=== PATIENT | female | born 1950 | race Caucasian/White ===

== ENCOUNTER 2016-05-01 06:33 | Inpatient (IN) | payer BC ==
[~2016-05-01] VITALS: Ht 172.7 cm; Wt 86.0 kg
[2016-05-01] VITALS (10 sets, daily range): BP systolic 128–160; BP diastolic 65–98; PULSE 73–89; RESP 18–20; TEMP 97.4–97.9; O2SAT 96–98
[~2016-05-01 06:33] MED LIST: DILA100C
[2016-05-01] MEDS ORDERED: AMLO5TAB2 PO (06:51)
[2016-05-01] MEDS ORDERED: METO50TA PO (06:51)
--- NOTE | 2016-05-01 07:09 | PD ---
HPI Chief Complaint: Chest Pain Time Seen by Provider: 06:56 Travel History International Travel<30 days: No Contact w/Intl Traveler<30days: No Traveled to known affect area: No History of Present Illness HPI Patient is a 65-year-old female who presents to emergency room with complaints of chest pain. Patient reports that she woke up around 4 AM this morning, reports that she had a squeezing pain to her chest which was located to her substernal chest wall. Patient reports that her chest pain woke her from sleep , reports that she felt diaphoretic, short of breath, nauseous with her symptoms. Patient reports that she felt hot and diaphoretic so she laid down on the cold ground for relief of symptoms. Patient reports that she had complete resolutions after 30 minutes of her symptoms. Patient reports that after chest pain resolved, she began to have increased pain to her jaw. Reports that her jaw b/l began to hurt her. Patient denies history of [place] in the past. Patient reports only history of hypertension. Patient denies history of coronary disease, hyperlipidemia, diabetes. Patient does admit to smoking. Patient with no shortness of breath or chest pain at this time. No recent travels/trips. No family hx of early CAD/[place]. PFSH Past Medical History Diminished Hearing: No Hypertension: Yes Seizures: Yes ( non surgical lesion for 17 years) Tetanus Vaccination: > 5 Years Influenza Vaccination: No Menopausal: Yes Past Surgical History Cholecystectomy: Yes Hysterectomy: Yes (Full) Family History Family History: Negative Social History Alcohol Use: No Tobacco Use: Yes (1 ppd x 42 years) Substance Use: No Allergies-Medications (Allergen,Severity, Reaction): Coded Allergies: No Known Allergies (Verified , 08/09/14) Reported Meds & Prescriptions Reported Meds & Active Scripts Active Reported Amlodipine (Amlodipine Besylate) 5 Mg Tab 5 Mg PO DAILY Metoprolol Tartrate 50 Mg Tab 50 Mg PO DAILY Review of Systems General / Constitutional: No: Fever Eyes: No: Visual changes HENT: No: Headaches Cardiovascular: Positive: Chest Pain or Discomfort, Diaphoresis Respiratory: Positive: Cough, Shortness of Breath Gastrointestinal: Positive: Nausea, No: Vomiting, Abdominal Pain Genitourinary: No: Dysuria Musculoskeletal: No: Pain Skin: No Rash Neurologic: No: Weakness Psychiatric: No: Depression Endocrine: No: Polydipsia Hematologic/Lymphatic: No: Easy Bruising Physical Exam Narrative GENERAL: NAD, Nontoxic SKIN: Warm and dry. HEAD: Atraumatic. Normocephalic. EYES: No injection or drainage. ENT: No nasal bleeding or discharge. Mucous membranes pink and moist. NECK: Trachea midline. No JVD. CARDIOVASCULAR: Regular rate and rhythm. No murmur appreciated. RESPIRATORY: No accessory muscle use. Clear to auscultation. Breath sounds equal bilaterally. GASTROINTESTINAL: Abdomen soft, non-tender, nondistended. Hepatic and splenic margins not palpable. MUSCULOSKELETAL: No obvious deformities. No clubbing. No cyanosis. No edema. NEUROLOGICAL: Awake and alert. Motor grossly within normal limits. Normal speech. PSYCHIATRIC: Appropriate mood and affect; insight and judgment normal. Data Data Last Documented VS Vital Signs Date Time Temp Pulse Resp B/P Pulse Ox O2 Delivery O2 Flow Rate FiO2 05/01/16 06:42 20 Room Air 05/01/16 06:36 97.4 73 160/73 97 Orders B-Type Natriuretic Peptide (05/01/16 07:02) Ckmb (Isoenzyme) Profile (05/01/16 07:02) Complete Blood Count With Diff (05/01/16 07:02) Comprehensive Metabolic Panel (05/01/16 07:02) Prothrombin Time / Inr (Pt) (05/01/16 07:02) Act Partial Throm Time (Ptt) (05/01/16 07:02) Troponin I (05/01/16 07:02) Chest, Single Ap (05/01/16 07:02) Ecg Monitoring (05/01/16 07:02) Iv Access Insert/Monitor (05/01/16 07:02) Oximetry (05/01/16 07:02) Sodium Chloride 0.9% Flush (Ns Flush) (05/01/16 07:15) Sodium Chlorid 0.9% 500 Ml Inj (Ns 500 M (05/01/16 07:15) Electrocardiogram (05/01/16 06:57) Admit Order (Ed Use Only) (05/01/16 08:43) Labs Laboratory Tests Test 05/01/16 06:52 White Blood Count 12.0 TH/MM3 Red Blood Count 4.76 MIL/MM3 Hemoglobin 14.2 GM/DL Hematocrit 42.4 % Mean Corpuscular Volume 88.9 FL Mean Corpuscular Hemoglobin 29.8 PG Mean Corpuscular Hemoglobin 33.5 % Concent Red Cell Distribution Width 14.1 % Platelet Count 358 TH/MM3 Mean Platelet Volume 8.0 FL Neutrophils (%) (Auto) 70.2 % Lymphocytes (%) (Auto) 19.6 % Monocytes (%) (Auto) 6.9 % Eosinophils (%) (Auto) 2.5 % Basophils (%) (Auto) 0.8 % Neutrophils # (Auto) 8.4 TH/MM3 Lymphocytes # (Auto) 2.3 TH/MM3 Monocytes # (Auto) 0.8 TH/MM3 Eosinophils # (Auto) 0.3 TH/MM3 Basophils # (Auto) 0.1 TH/MM3 CBC Comment DIFF FINAL Differential Comment Prothrombin Time 10.5 SEC Prothromb Time International 1.0 RATIO Ratio Activated Partial 28.2 SEC Thromboplast Time Sodium Level 138 MEQ/L Potassium Level 4.0 MEQ/L Chloride Level 107 MEQ/L Carbon Dioxide Level 22.4 MEQ/L Anion Gap 9 MEQ/L Blood Urea Nitrogen 15 MG/DL Creatinine 0.81 MG/DL Estimat Glomerular Filtration 71 ML/MIN Rate Random Glucose 122 MG/DL Calcium Level 9.4 MG/DL Total Bilirubin 0.1 MG/DL Aspartate Amino Transf 12 U/L (AST/SGOT) Alanine Aminotransferase 23 U/L (ALT/SGPT) Alkaline Phosphatase 64 U/L Total Creatine Kinase 86 U/L Troponin I 0.05 NG/ML B-Type Natriuretic Peptide 20 PG/ML Total Protein 7.6 GM/DL Albumin 3.4 GM/DL MDM Medical Decision Making Medical Screen Exam Complete: Yes Emergency Medical Condition: Yes Interpretation(s) EKG at 656: Normal sinus rhythm at 67 beats minute, QT/QTc 403/418, T-wave inversions leads 3, aVF, nonspecific ST and T-wave changes, st seg depression V3 -V6 EKG at 956: NSR at 67bpm, qt/qtc: 400/416, no change when compare to original ekg Vital Signs Date Time Temp Pulse Resp B/P Pulse Ox O2 Delivery O2 Flow Rate FiO2 05/01/16 06:42 20 Room Air 05/01/16 06:36 97.4 73 20 160/73 97 Vital Signs Date Time Temp Pulse Resp B/P Pulse Ox O2 Delivery O2 Flow Rate FiO2 05/01/16 06:42 20 Room Air 05/01/16 06:36 97.4 73 20 160/73 97 Differential Diagnosis acs, arrhythmia, electrolyte abnormality, PE, pneumothorax Narrative Course Patient is a 65-year-old female who presents to emergency with complaints of chest pain. Patient reports that her chest pain woke her from sleep this morning around 4 AM, chest pain was associated with diaphoresis, nausea and a squeezing feeling to her substernal chest wall. Chest pain lasted for about 30 minutes, reports that this resolved, she began to have pain to her jaw bilaterally. Patient currently with no chest pain at this time. . Patient was placed on a manager cardiac upon presentation to the emergency room. Patient did take 2 baby aspirin prior to emergency room. Patient currently with no chest pain at this time. CBC, BMP, cardiac enzymes as well as x-ray chest ordered for further evaluation symptoms. Willl continue to monitor patient on manager cardiac. CBC & BMP Diagram 05/01/16 06:52 Laboratory Tests Test 05/01/16 06:52 White Blood Count 12.0 TH/MM3 (4.0-11.0) Red Blood Count 4.76 MIL/MM3 (4.00-5.30) Hemoglobin 14.2 GM/DL (11.6-15.3) Hematocrit 42.4 % (35.0-46.0) Mean Corpuscular Volume 88.9 FL (80.0-100.0) Mean Corpuscular Hemoglobin 29.8 PG (27.0-34.0) Mean Corpuscular Hemoglobin 33.5 % Concent (32.0-36.0) Red Cell Distribution Width 14.1 % (11.6-17.2) Platelet Count 358 TH/MM3 (150-450) Mean Platelet Volume 8.0 FL (7.0-11.0) Neutrophils (%) (Auto) 70.2 % (16.0-70.0) Lymphocytes (%) (Auto) 19.6 % (9.0-44.0) Monocytes (%) (Auto) 6.9 % (0.0-8.0) Eosinophils (%) (Auto) 2.5 % (0.0-4.0) Basophils (%) (Auto) 0.8 % (0.0-2.0) Neutrophils # (Auto) 8.4 TH/MM3 (1.8-7.7) Lymphocytes # (Auto) 2.3 TH/MM3 (1.0-4.8) Monocytes # (Auto) 0.8 TH/MM3 (0-0.9) Eosinophils # (Auto) 0.3 TH/MM3 (0-0.4) Basophils # (Auto) 0.1 TH/MM3 (0-0.2) CBC Comment DIFF FINAL Differential Comment Prothrombin Time 10.5 SEC (9.8-11.6) Prothromb Time International 1.0 RATIO Ratio Activated Partial 28.2 SEC Thromboplast Time (24.3-30.1) Sodium Level 138 MEQ/L (136-145) Potassium Level 4.0 MEQ/L (3.5-5.1) Chloride Level 107 MEQ/L (98-107) Carbon Dioxide Level 22.4 MEQ/L (21.0-32.0) Anion Gap 9 MEQ/L (5-15) Blood Urea Nitrogen 15 MG/DL (7-18) Creatinine 0.81 MG/DL (0.50-1.00) Estimat Glomerular Filtration 71 ML/MIN (>89) Rate Random Glucose 122 MG/DL (74-106) Calcium Level 9.4 MG/DL (8.5-10.1) Total Bilirubin 0.1 MG/DL (0.2-1.0) Aspartate Amino Transf 12 U/L (15-37) (AST/SGOT) Alanine Aminotransferase 23 U/L (10-53) (ALT/SGPT) Alkaline Phosphatase 64 U/L (45-117) Total Creatine Kinase 86 U/L (26-192) Troponin I 0.05 NG/ML (0.02-0.05) B-Type Natriuretic Peptide 20 PG/ML (0-100) Total Protein 7.6 GM/DL (6.4-8.2) Albumin 3.4 GM/DL (3.4-5.0) Last Impressions Chest X-Ray 05/01/16 0702 Signed Impressions: Service Date/Time: Sunday, May 01, 2016 07:19 - CONCLUSION: No acute intrathoracic disease. Alfredito Mcdaniel MD Patient reevaluated, patient reports that she is feeling better. Reviewed all labs and all studies with patient in detail. Patient does have nonspecific ST and T-wave changes on EKG. Plan to obs in chest pain unit - patient agreeable to care. pt with positive trop 0.11 (second trop) pt with ischemic ekg, will need to admit to medicine service, call made to pt's pcp to see if he would like patient admitted to his service primarily discussed need for heparin and heparin gtt on pt call made to pt's pcp dr ann - no call back after an hour of paging him. will continue to page him - no answer from Dr Ann after 1.5 hours of paging him - will admit to medicine discussed case with dr estrada who accepts pt to service, request that I consult cardiology for NSTEMI, call made to DR Wang who is regional branch manager today for general cardiology case reviewed with dr wang, will see patient in consult, request heparin gtt Critical Care Narrative Aggregate critical care time was 30 minutes. Time to perform other separately billable procedures was not included in the critical care time. My time did not include minutes spent treating any other patients simultaneously or on activities that did not directly contribute to the patient's treatment. The services I provided to this patient were to treat and/or prevent clinically significant deterioration that could result in: , decompensation, deterioration I provided critical care services requiring my management, as noted below: Chart data review, documentation time, medication orders and management, vital sign assessments/reviewing monitor data, ordering and reviewing lab tests, ordering and interpreting/reviewing x-rays and diagnostic studies, care of the patient and discussion of the patient with the admitting physicians. Diagnosis Primary Impression: NSTEMI (non-ST elevated myocardial infarction) Admitting Information Admitting Physician Requests: Kathleen Doan DO May 01, 2016 07:09
[2016-05-01] MEDS ORDERED: SODIUM CHLORID 0.9% 500 ML INJ 500 ML IV ONE (07:15)
[2016-05-01] MEDS ORDERED: SODIUM CHLORIDE 0.9% FLUSH 5 ML FLUSH IVF PRN (07:15)
--- NOTE | 2016-05-01 07:43 | RADRPT ---
EXAM DATE/TIME: 05/01/2016 07:19 [facility] COMPARISON: No previous studies available for comparison. INDICATIONS : Patient complains of chest pain. Patient also states they have mandible pain when chest pain was pres ent. MEDICAL HISTORY : None. SURGICAL HISTORY : None. ENCOUNTER: Initial ACUITY: 1 day PAIN SCORE: 8/10 LOCATION: chest FINDINGS: A single view of the chest demonstrates the lungs to be symmetrically aerated without evidence of mas s, infiltrate or effusion. The cardiomediastinal contours are unremarkable. Osseous structures are intact. CONCLUSION: No acute intrathoracic disease. Alfredito Mcdaniel MD on May 01, 2016 at 7:41 Board Certified Radiologist. This report was verified electronically.
[2016-05-01 07:55] LABS: AUTOMATED NEUTROPHIL # 8.4 TH/MM3 (1.8-7.7); BASOPHIL # 0.1 TH/MM3 (0-0.2); BASOPHIL % 0.8 % (0.0-2.0); EOSINOPHIL # 0.3 TH/MM3 (0-0.4); EOSINOPHIL % 2.5 % (0.0-4.0); HEMATOCRIT 42.4 % (35.0-46.0); HEMO FLAGS DIFF FINAL; LYMPH % 19.6 % (9.0-44.0); LYMPHOCYTE # 2.3 TH/MM3 (1.0-4.8); MEAN CELL VOLUME 88.9 FL (80.0-100.0); MEAN CORPUSCULAR HEMOGLOBIN 29.8 PG (27.0-34.0); MEAN CORPUSCULAR HGB CONC 33.5 % (32.0-36.0); MONO % 6.9 % (0.0-8.0); NEUT % 70.2 % (16.0-70.0); PLATELET COUNT 358 TH/MM3 (150-450); RED BLOOD COUNT 4.76 MIL/MM3 (4.00-5.30); RED CELL DISTRIBUTION WIDTH 14.1 % (11.6-17.2)
[2016-05-01 08:01] LABS: APTT (PATIENT) 28.2 SEC (24.3-30.1); PROTHROMBIN TIME - PATIENT 10.5 SEC (9.8-11.6)
[2016-05-01 08:11] LABS: ANION GAP 9 MEQ/L (5-15); AST (GOT) 12 U/L (15-37); BICARBONATE 22.4 MEQ/L (21.0-32.0); BLOOD UREA NITROGEN 15 MG/DL (7-18); CHLORIDE 107 MEQ/L (98-107); GLOMERULAR FILTRATION RATE 71 ML/MIN (>89); SODIUM (NA) 138 MEQ/L (136-145)
[2016-05-01 08:16] LABS: ALKALINE PHOSPHATASE 64 U/L (45-117); ALT (GPT) 23 U/L (10-53); TOTAL BILIRUBIN ADULT 0.1 MG/DL (0.2-1.0)
[2016-05-01 08:22] LABS: CREATINE KINASE 86 U/L (26-192)
[2016-05-01] MEDS ORDERED: HEPARIN-D5W INJ 250 ML IV SCH (11:00)
[2016-05-01] MEDS ORDERED: HEPARIN SODIUM - IV 10,000 UNITS/10 ML VIAL IV ONE (11:45)
--- NOTE | 2016-05-01 12:10 | EKG ---
Date Performed: 05/01/2016 Time Performed: 06:57:06 PTAGE: 65 years EKG: Sinus rhythm MARKED LEFT AXIS DEVIATION MODERATE INTRAVENTRICULAR CONDUCTION DELAY MODERATE VOLTAGE CRITERIA FOR LVH, CONSIDER NORMAL VARIANT NONSPECIFIC ST & T-WAVE ABNORMALITY ABNORMAL ECG NO PREVIOUS TRACING DOCTOR: Gerard Alvarenga Interpretating Date/Time 05/01/2016 12:07:01
--- NOTE | 2016-05-01 13:00 | HHI.HP ---
[facility] Service Family Medicine Primary Care Physician Vargas Thomas MD Admission Diagnosis Chest pain Diagnoses: International Travel<30 Days: No Contact w/Intl Traveler<30days: No Known Affected Area: No History of Present Illness Patient is a 65-year-old female with a PMH significant for HTN. Present here today due to chest pain. Chest pain started at 4 AM and woke her up from sleep. [place] like a "grabbing"sensation around her chest, midsternal that radiated up to bilateral jaw. No radiation down left arm. Endorsed weakness, diaphoresis, nausea without vomiting at that time. The symptoms lasted for one hour. Pain spontaneously resolved. During that time she did take 2 "big aspirins". Denies any SOB. No prior episode of chest pain or symptoms of dyspnea on exertion or orthopnea. No family history of cardiac disease. History is significant for smoking 1 PPD since 13 years old. (Shirley Cheung MD R2) Review of Systems Constitutional: COMPLAINS OF: Diaphoretic episodes, Fatigue, DENIES: Change in appetite Eyes: DENIES: Blurred vision Ears, nose, mouth, throat: DENIES: Vertigo, Throat pain Respiratory: DENIES: Cough, Shortness of breath Cardiovascular: COMPLAINS OF: Chest pain, DENIES: Palpitations, Syncope, Dyspnea on Exertion, Lower Extremity Edema, Orthopnea Gastrointestinal: COMPLAINS OF: Nausea, DENIES: Abdominal pain, Diarrhea, Vomiting Genitourinary: DENIES: Dysuria Musculoskeletal: COMPLAINS OF: Back pain Neurologic: DENIES: Headache (Shirley Cheung MD R2) Past Family Social History Past Medical History HTN Chronic Back issues Past Surgical History Hysterectomy Cholecystectomy Reported Medications Reported Meds & Active Scripts Active Reported Metoprolol Succinate ER 24 HR (Metoprolol Succinate) 50 Mg Tab 50 Mg PO DAILY Amlodipine (Amlodipine Besylate) 2.5 Mg Tab 2.5 Mg PO DAILY (Shirley Cheung MD R2) Allergies: Coded Allergies: No Known Allergies (Verified , 08/09/14) Family History Father: CHF, at 78 Mother: Pulmonary fibrosis, at 78 Social History Lives with Alcohol: denies Tobacco: 1ppd started at 13yrs Illicit: denies (Shirley Cheung MD R2) Physical Exam Vital Signs Vital Signs Date Time Temp Pulse Resp B/P Pulse Ox O2 Delivery O2 Flow Rate FiO2 05/01/16 11:18 89 18 145/65 96 05/01/16 06:42 20 Room Air 05/01/16 06:36 97.4 73 20 160/73 97 Physical Exam GENERAL: This is a well-nourished, well-developed patient, in no apparent distress. SKIN: No rashes, ecchymoses or lesions. Cool and dry. HEAD: Atraumatic. Normocephalic. No temporal or scalp tenderness. EYES: Pupils equal round and reactive. Extraocular motions intact. No scleral icterus. No injection or drainage. ENT: Nose without bleeding, purulent drainage. Throat without erythema, tonsillar hypertrophy or exudate. Uvula midline. Airway patent. NECK: No lymphadenopathy. CARDIOVASCULAR: Regular rate and rhythm without murmurs, gallops, or rubs. RESPIRATORY: Clear to auscultation. Breath sounds equal bilaterally. No wheezes , rales, or rhonchi. GASTROINTESTINAL: Abdomen soft, non-tender, nondistended. No hepato-splenomegaly , or palpable masses. No guarding. MUSCULOSKELETAL: Extremities without clubbing, cyanosis, or edema. No calf tenderness. NEUROLOGICAL: Awake and alert. Motor and sensory grossly within normal limits. Five out of 5 muscle strength in all muscle groups. Normal speech. Laboratory Laboratory Tests Test 05/01/16 05/01/16 06:52 10:00 White Blood Count 12.0 Red Blood Count 4.76 Hemoglobin 14.2 Hematocrit 42.4 Mean Corpuscular Volume 88.9 Mean Corpuscular Hemoglobin 29.8 Mean Corpuscular Hemoglobin 33.5 Concent Red Cell Distribution Width 14.1 Platelet Count 358 Mean Platelet Volume 8.0 Neutrophils (%) (Auto) 70.2 Lymphocytes (%) (Auto) 19.6 Monocytes (%) (Auto) 6.9 Eosinophils (%) (Auto) 2.5 Basophils (%) (Auto) 0.8 Neutrophils # (Auto) 8.4 Lymphocytes # (Auto) 2.3 Monocytes # (Auto) 0.8 Eosinophils # (Auto) 0.3 Basophils # (Auto) 0.1 CBC Comment DIFF FINAL Differential Comment Prothrombin Time 10.5 Prothromb Time International 1.0 Ratio Activated Partial 28.2 Thromboplast Time Sodium Level 138 Potassium Level 4.0 Chloride Level 107 Carbon Dioxide Level 22.4 Anion Gap 9 Blood Urea Nitrogen 15 Creatinine 0.81 Estimat Glomerular Filtration 71 Rate Random Glucose 122 Calcium Level 9.4 Total Bilirubin 0.1 Aspartate Amino Transf 12 (AST/SGOT) Alanine Aminotransferase 23 (ALT/SGPT) Alkaline Phosphatase 64 Total Creatine Kinase 86 Troponin I 0.05 0.11 B-Type Natriuretic Peptide 20 Total Protein 7.6 Albumin 3.4 (Shirley Cheung MD R2) Result Diagram: 05/01/16 0652 05/01/16651 Imaging Last Impressions Chest X-Ray 05/01/16701 Signed Impressions: Service Date/Time: Tuesday, May 01, 2016 07:19 - CONCLUSION: No acute intrathoracic disease. Alfredito Mcdaniel MD (Shirley Cheung MD R2) Assessment and Plan Assessment and Plan Patient is a 65-year-old female with a PMH significant for HTN. Admitted for an NTEMI Code Status Full Discussed Condition With Dr. Low and Dr. Zurita (Shirley Cheung MD R2) Attending Attestation THIS CASE WAS DISCUSSED WITH THE RESIDENT PHYSICIANS. I HAVE REVIEWED THE RECORD AND AGREE WITH THE ABOVE NOTE AND PLAN OF CARE WAS DISCUSSED. I HAVE AUTHORIZED THE ORDER FOR ADMISSION TO AN IN-PATIENT STATUS. (Alfredito Zurita MD) Problem List: (1) NSTEMI (non-ST elevated myocardial infarction) Status: Acute Plan: Presented with classic symptoms of chest pressure, diaphoresis, and nausea. EKG showed T wave inversion in inferior leads without ST changes. Trended troponins in the ED showed a pump from 0.05 to 0.11. Currently asymptomatic. -Leukocytosis but possibly due to stress response as patient is otherwise asymptomatic. Continue to follow -CXR unremarkable. -cardiac telemetry -Aspirin already taken at home prior to admission -Repeat EKG and troponin at 1600 -Lipid panel in AM Cardiology consulted: appreciated recommendations. * medical management * consider Cath on Tuesday if needed. Medications: * aspirin * atorvastatin 80mg daily * continued home metoprolol * switched home amlodipine 2.6mg to lisinopril 5mg daily (2) HTN (hypertension) Status: Acute Plan: Vasotec PRN (3) Nutrition, metabolism, and development symptoms Status: Acute Plan: Diet: Healthy healthy Fluids: none Electrolytes: unremarkable, continue to monitor DVT PPX: Heparin drip for NSTEMI GI PPX: not indicated (Shirley Cheung MD R2) Shirley Cheung MD R2 May 01, 2016 13:00 Alfredito Zurita MD May 01, 2016 20:56
[2016-05-01] MEDS ORDERED: METO50TA11 PO (13:06)
[2016-05-01] MEDS ORDERED: SODIUM CHLORIDE 0.9% FLUSH 5 ML FLUSH FLUSH PRN (13:45)
[2016-05-01] MEDS ORDERED: NALOXONE HCL 0.4 MG/ML AMP IV PRN (13:45)
[2016-05-01] MEDS ORDERED: SODIUM CHLORIDE 0.9% FLUSH 5 ML FLUSH IV PRN (13:45)
[2016-05-01] MEDS ORDERED: NITROGLYCERIN 2% OINT 1 GM PACKET TOP PRN (13:45)
[2016-05-01] MEDS ORDERED: AMLO2.5T PO (16:08)
--- NOTE | 2016-05-01 16:56 | MB ---
cc: MADDIE LEPE MD DATE OF CONSULTATION 05/01/16 HISTORY OF PRESENT ILLNESS Ms. Bray is a 65 year old white female with a history of hypertension. She woke at 4 o'clock this morning with substernal chest discomfort radiating in the jaw associated diaphoresis, nausea and generalized weakness. This lasted for about one hour. She took two aspirin. She has no previous history of coronary artery disease. She has history of smoking. PAST MEDICAL HISTORY 1. Hypertension 2. Chronic back pain 3. History of hysterectomy 4. Cholecystectomy No history of dyslipidemia, diabetes mellitus, coronary artery disease or cerebrovascular accident. MEDICATIONS 1. Metoprolol 2. Amlodipine ALLERGIES None. SOCIAL HISTORY The patient does not drink alcohol. She smokes one pack a day for many years. She is . FAMILY HISTORY Positive for heart disease in her father. REVIEW OF SYSTEMS Otherwise negative. PHYSICAL EXAMINATION VITAL SIGNS: Blood pressure 149/97, pulse 83 and regular. HEENT: Negative, 2+ carotid upstrokes, no bruits. LUNGS: Clear. HEART: Regular with no murmurs, rubs or gallops ABDOMEN: Soft, no bruits. EXTREMITIES: Without edema, 2+ distal pulses. NEUROLOGIC: Grossly nonfocal. CARDIOLOGY STUDIES Electrocardiogram was reviewed and showed normal sinus rhythm, left axis, left anterior fascicular block, left ventricular hypertrophy and nonspecific ST-T changes. LABORATORY DATA Hemoglobin 14.2, potassium 4.0, creatinine 0.81, troponin 0.05 and 0.11. BNP 20. AST 12, ALT 23. DIAGNOSES 1. Non ST elevation myocardial infarction 2. Hypertension 3. Smoking DISPOSITION Ms. Bray will continue her current medical program including therapy with IV heparin and aspirin. We will also continue beta karsten and start a statin. She will be scheduled for cardiac catheterization and coronary intervention if necessary on Tuesday. MD CRYSTAL English/ /4:34 PM /4:43 PM MTDJon
[2016-05-01] MEDS ORDERED: HEPARIN SODIUM - IV 10,000 UNITS/10 ML VIAL IV PRN ×2 (17:00)
[2016-05-01] MEDS ORDERED: ENALAPRILAT 1.25 MG/ML VIAL IV PRN (17:45)
[2016-05-01] MEDS ORDERED: ACETAMINOPHEN/HYDROcodone 325 MG/5 MG TAB PO PRN (18:15)
[2016-05-01] MEDS ORDERED: ACETAMINOPHEN/HYDROcodone 325 MG/10 MG TAB PO PRN (18:15)
[2016-05-01 18:40] LABS: MAGNESIUM 1.9 MG/DL (1.5-2.5)
[2016-05-01 19:27] LABS: APTT (PATIENT) 40.2 SEC (24.3-30.1)
[2016-05-01] MEDS: ALPRAZolam 0.5 MG TAB PO PRN (20:39)
[2016-05-01] MEDS: SODIUM CHLORIDE 0.9% FLUSH 5 ML FLUSH FLUSH SCH (20:43)
[2016-05-01] MEDS: ATORVASTATIN 80 MG TAB PO SCH (20:43)
[2016-05-01] MEDS: METOPROLOL TARTRATE 25 MG TAB PO SCH (20:43)
--- NOTE | 2016-05-01 20:55 | HHI.HP ---
[facility] Service Family Medicine Primary Care Physician Vargas Thomas MD Admission Diagnosis Chest pain Diagnoses: (1) NSTEMI (non-ST elevated myocardial infarction) (2) HTN (hypertension) (3) Nutrition, metabolism, and development symptoms International Travel<30 Days: No Contact w/Intl Traveler<30days: No Known Affected Area: No History of Present Illness 65 yo F presenting to the ED with a complaint of chest discomfort. She woke up with chest pressure described as a squeezing sensation that was midsternal/ substernal radiating up to her bilateral jaw. She felt fatigued and diaphoretic with nausea associated with her chest pain. These symptoms lasted for approx. 1-2 hours before spontaneously resolving. She denies syncope, denies palpitations, denies feeling SOB. She has a h/o HTN and a long history of tobacco use, smoking 1ppd x50 years. Review of Systems Constitutional: COMPLAINS OF: Diaphoretic episodes, DENIES: Fatigue, Fever, Chills, Dizziness Eyes: DENIES: Blurred vision Ears, nose, mouth, throat: DENIES: Tinnitus Respiratory: DENIES: Cough, Wheezing, Sputum production, Shortness of breath Cardiovascular: COMPLAINS OF: Chest pain, DENIES: Palpitations, Dyspnea on Exertion Gastrointestinal: DENIES: Abdominal pain, Constipation, Nausea, Vomiting Past Family Social History Past Medical History HTN Chronic Back issues Past Surgical History Hysterectomy Cholecystectomy Allergies: Coded Allergies: No Known Allergies (Verified , 08/09/14) Family History Father: CHF, at 78 Mother: Pulmonary fibrosis, at 78 Social History Lives with Alcohol: denies Tobacco: 1ppd started at 13yrs Illicit: denies Physical Exam Vital Signs Vital Signs Date Time Temp Pulse Resp B/P Pulse Ox O2 Delivery O2 Flow Rate FiO2 05/01/16 18:00 81 20 142/98 97 05/01/16 16:00 97.9 83 20 149/97 98 05/01/16 14:28 83 20 128/73 97 Room Air 05/01/16 13:00 80 18 135/69 98 Room Air 05/01/16 11:18 89 18 145/65 96 05/01/16 06:42 20 Room Air 05/01/16 06:36 97.4 73 20 160/73 97 Physical Exam GENERAL: This is a well-nourished, well-developed patient, in no apparent distress. SKIN: No rashes, ecchymoses or lesions. Cool and dry. HEAD: Atraumatic. Normocephalic. EYES: Pupils equal round and reactive. Extraocular motions intact. No scleral icterus. No injection or drainage. CARDIOVASCULAR: Regular rate and rhythm without murmurs, gallops, or rubs. RESPIRATORY: Clear to auscultation. Breath sounds equal bilaterally. No wheezes , rales, or rhonchi. GASTROINTESTINAL: Abdomen soft, non-tender, nondistended. MUSCULOSKELETAL: Extremities without clubbing, cyanosis, or edema. No calf tenderness. NEUROLOGICAL: Awake and alert. Laboratory Laboratory Tests Test 05/01/16 05/01/16 05/01/16 05/01/16 06:52 10:00 17:20 17:56 White Blood Count 12.0 Red Blood Count 4.76 Hemoglobin 14.2 Hematocrit 42.4 Mean Corpuscular Volume 88.9 Mean Corpuscular Hemoglobin 29.8 Mean Corpuscular Hemoglobin 33.5 Concent Red Cell Distribution Width 14.1 Platelet Count 358 Mean Platelet Volume 8.0 Neutrophils (%) (Auto) 70.2 Lymphocytes (%) (Auto) 19.6 Monocytes (%) (Auto) 6.9 Eosinophils (%) (Auto) 2.5 Basophils (%) (Auto) 0.8 Neutrophils # (Auto) 8.4 Lymphocytes # (Auto) 2.3 Monocytes # (Auto) 0.8 Eosinophils # (Auto) 0.3 Basophils # (Auto) 0.1 CBC Comment DIFF FINAL Differential Comment Prothrombin Time 10.5 Prothromb Time International 1.0 Ratio Activated Partial 28.2 40.2 Thromboplast Time Sodium Level 138 Potassium Level 4.0 Chloride Level 107 Carbon Dioxide Level 22.4 Anion Gap 9 Blood Urea Nitrogen 15 Creatinine 0.81 Estimat Glomerular Filtration 71 Rate Random Glucose 122 Calcium Level 9.4 Total Bilirubin 0.1 Aspartate Amino Transf 12 (AST/SGOT) Alanine Aminotransferase 23 (ALT/SGPT) Alkaline Phosphatase 64 Total Creatine Kinase 86 Troponin I 0.05 0.11 0.25 B-Type Natriuretic Peptide 20 Total Protein 7.6 Albumin 3.4 Magnesium Level 1.9 Result Diagram: 05/01/16 0652 05/01/16 0652 Imaging Last Impressions Chest X-Ray 05/01/16 0702 Signed Impressions: Service Date/Time: Sunday, May 01, 2016 07:19 - CONCLUSION: No acute intrathoracic disease. Alfredito Mcdaniel MD Assessment and Plan Assessment and Plan Patient is a 65-year-old female with a PMH significant for HTN. Admitted for an NTEMI Problem List: (1) NSTEMI (non-ST elevated myocardial infarction) Status: Acute Plan: NSTEMI with elevated troponins and nonspecific T wave changes on EKG Troponin 0.05 -> 0.11 - repeat troponin in 6 hours CXR unremarkable LEILA-B therapy Heparin gtt Monitor on telemetry Start on statin therapy Lipid panel ordered Cardiology consulted for likely cardiac catheterization (2) HTN (hypertension) Status: Acute Plan: Beta karsten with metoprolol and started on lisinopril Vasotec PRN (3) Nutrition, metabolism, and development symptoms Status: Acute Plan: Diet: Healthy healthy Fluids: none Electrolytes: unremarkable, continue to monitor DVT PPX: Heparin drip for NSTEMI GI PPX: not indicated Physician Certification 2 Midnight Certification Type: Admission for Inpatient Services Order for Inpatient Services The services are ordered in accordance with Medicare regulations or non- Medicare payer requirements, as applicable. In the case of services not specified as inpatient-only, they are appropriately provided as inpatient services in accordance with the 2-midnight benchmark. Estimated LOS (days): 2 2 days is the estimated time the patient will need to remain in the hospital, assuming treatment plan goals are met and no additional complications. Post-Hospital Plan: Not yet determined Alfredito Zurita MD May 01, 2016 20:55
[2016-05-01] MEDS ORDERED: SODIUM CHLORIDE 0.9% FLUSH 5 ML FLUSH IV SCH (21:00)
[2016-05-02] VITALS (28 sets, daily range): BP systolic 100–143; BP diastolic 44–89; PULSE 63–100; RESP 16–18; TEMP 97.6–98.8; O2SAT 94–99
[2016-05-02] MEDS ORDERED: SODIUM CHLOR 0.9% 1000 ML INJ 1,000 ML IV SCH ×2
[2016-05-02 07:43] LABS: APTT (PATIENT) 48.2 SEC (24.3-30.1); AUTOMATED NEUTROPHIL # 5.2 TH/MM3 (1.8-7.7); BASOPHIL % 0.5 % (0.0-2.0); EOSINOPHIL # 0.2 TH/MM3 (0-0.4); EOSINOPHIL % 2.4 % (0.0-4.0); HEMATOCRIT 39.5 % (35.0-46.0); HEMO FLAGS DIFF FINAL; LYMPH % 25.3 % (9.0-44.0); LYMPHOCYTE # 2.1 TH/MM3 (1.0-4.8); MEAN CELL VOLUME 87.5 FL (80.0-100.0); MEAN CORPUSCULAR HGB CONC 34.3 % (32.0-36.0); MONO % 9.5 % (0.0-8.0); NEUT % 62.3 % (16.0-70.0); PLATELET COUNT 354 TH/MM3 (150-450); RED BLOOD COUNT 4.52 MIL/MM3 (4.00-5.30); RED CELL DISTRIBUTION WIDTH 14.3 % (11.6-17.2); WHITE BLOOD COUNT 8.4 TH/MM3 (4.0-11.0)
[2016-05-02 08:05] LABS: BICARBONATE 26.4 MEQ/L (21.0-32.0); HDL CHOLESTEROL 28.1 MG/DL (40.0-60.0); POTASSIUM 3.9 MEQ/L (3.5-5.1)
--- NOTE | 2016-05-02 08:07 | HHI.FPPN ---
Subjective Remarks Patient seen and examined this am. She states she physically feels well and would like to go home. She states she is going through withdrawal from not having cigarettes. She denies CP or jaw pain. She denies any SOB or difficulty breathing. Vitals are overall stable and there were no events overnight. Discussed case with cards, likely have cath on Tuesday. (Ritika Cai MD R3) Objective Vitals Vital Signs Date Time Temp Pulse Resp B/P Pulse Ox O2 Delivery O2 Flow Rate FiO2 05/02/16 06:00 75 05/02/16 05:00 69 05/02/16 04:00 97.6 89 18 109/84 98 05/02/16 04:00 100 05/02/16 04:00 97.6 89 18 109/84 98 05/02/16 03:00 64 05/02/16 02:00 82 05/02/16 01:00 63 05/02/16 00:00 86 05/02/16 00:00 98.2 66 18 100/55 99 05/02/16 00:00 98.2 66 18 100/55 99 05/01/16 23:00 77 05/01/16 21:00 89 05/01/16 20:00 97.9 87 18 151/85 97 05/01/16 20:00 87 05/01/16 20:00 97.9 87 18 151/85 97 05/01/16 19:00 89 05/01/16 18:00 81 20 142/98 97 05/01/16 16:00 97.9 83 20 149/97 98 05/01/16 14:28 83 20 128/73 97 Room Air 05/01/16 13:00 80 18 135/69 98 Room Air 05/01/16 11:18 89 18 145/65 96 I/O 05/01/16 05/01/16 05/01/16 05/02/16 05/02/16 05/02/16 07:00 15:00 23:00 07:00 15:00 23:00 Intake Total 16 ml 576 ml Balance 16 ml 576 ml Intake Oral 480 ml IV Total 16 ml 96 ml # Voids 1 2 # Bowel Movements 1 (Ritika Cai MD R3) Result Diagram: 05/02/16 0641 05/02/16 0641 Imaging Last Impressions Chest X-Ray 05/01/16 0702 Signed Impressions: Service Date/Time: Sunday, May 01, 2016 07:19 - CONCLUSION: No acute intrathoracic disease. Alfredito Mcdaniel MD Objective Remarks GENERAL: This is a well-nourished, well-developed patient, in no apparent distress. SKIN: No rashes, ecchymoses or lesions. Cool and dry. HEAD: Atraumatic. Normocephalic. EYES: Pupils equal round and reactive. Extraocular motions intact. No scleral icterus. No injection or drainage. CARDIOVASCULAR: Regular rate and rhythm without murmurs, gallops, or rubs. RESPIRATORY: Clear to auscultation. Breath sounds equal bilaterally. No wheezes , rales, or rhonchi. GASTROINTESTINAL: Abdomen soft, non-tender, nondistended. MUSCULOSKELETAL: Extremities without clubbing, cyanosis, or edema. No calf tenderness. NEUROLOGICAL: Awake and alert. (Ritika Cai MD R3) A/P Assessment and Plan Patient is a 65-year-old female with a PMH significant for HTN. Admitted for an NTEMI Discharge Planning d/c pending cardiac workup, likely tuesday after cath. case seen and discussed with [facility] (Ritika Cai MD R3) Attending Attestation Patient examined and case discussed with resident physicians I have read the above note and agree with the assessment/plan as discussed with me I was involved in all medical decision making for this patient Alfredito Zurita M.D. (Alfredito Zurita MD) Problem List: (1) NSTEMI (non-ST elevated myocardial infarction) Status: Acute Plan: NSTEMI with elevated troponins and nonspecific T wave changes on EKG Troponin 0.05 -> 0.11 --> 0.25 (no active chest pain) CXR unremarkable LEILA- therapy Heparin gtt Monitor on telemetry Lipid panel reviewed, A1C added to blood in lab - will calculate ASCVD risk to see if and what type of statin needed Cardiology consulted ([facility]) for likely cardiac catheterization on tuesday (2) HTN (hypertension) Status: Acute Plan: Beta karsten with metoprolol and started on lisinopril (will see if KRISS-I needs to be continued upon discharge) Vasotec PRN (3) Nutrition, metabolism, and development symptoms Status: Acute Plan: Diet: Healthy healthy Fluids: none Electrolytes: unremarkable, continue to monitor DVT PPX: Heparin drip for NSTEMI GI PPX: not indicated (Ritika Cai MD R3) Ritika Cai MD R3 May 02, 2016 08:07 Alfredito Zurita MD May 02, 2016 13:13
[2016-05-02] MEDS: ASPIRIN 81 MG CHEW TAB CHEW SCH (08:48)
[2016-05-02] MEDS: LISINOPRIL 5 MG TAB PO SCH (08:48)
[2016-05-02] MEDS: METOPROLOL TARTRATE 25 MG TAB PO SCH ×2 (08:49→21:36)
[2016-05-02] MEDS: SODIUM CHLORIDE 0.9% FLUSH 5 ML FLUSH FLUSH SCH ×2 (08:49→21:00)
[2016-05-02] MEDS ORDERED: amLODIPine BESYLATE 5 MG TAB PO SCH (09:00)
[2016-05-02 11:03] LABS: HEMOGLOBIN Ao 84.3 %; HEMOGLOBIN F 1.1 %; HEMOGLOBIN LA1C 2.2 %; HEMOGLOBIN P3 4.1 %
--- NOTE | 2016-05-02 13:14 | EKG ---
Date Performed: 05/01/2016 Time Performed: 17:35:12 PTAGE: 65 years EKG: Sinus rhythm Possible left anterior fascicular block IV conduction defect Left ventricular hypertrophy Extensive ST-T changes may be due to hypertrophy and/or ischemia Abnormal ECG PREVIOUS TRACING 05/01/2016 @09.57.26 DOCTOR: Gerard Alvarenga Interpretating Date/Time 05/02/2016 13:12:04
--- NOTE | 2016-05-02 13:14 | EKG ---
Date Performed: 05/01/2016 Time Performed: 09:57:26 PTAGE: 65 years EKG: Sinus rhythm LEFT ANTERIOR FASCICULAR BLOCK MINIMAL VOLTAGE CRITERIA FOR LVH, CONSIDER NORMAL VARIANT NONSPECIFIC ST & T-WAVE ABNORMALITY ABNORMAL ECG Compared to prior tracing no significant change PREVIOUS TRACING : 05/01/2016 06.57 DOCTOR: Gerard Alvarenga Interpretating Date/Time 05/02/2016 13:12:14
[2016-05-02] MEDS: ATORVASTATIN 80 MG TAB PO SCH (21:35)
[2016-05-02] MEDS: ALPRAZolam 0.5 MG TAB PO PRN (21:35)
[2016-05-03] VITALS (21 sets, daily range): BP systolic 106–146; BP diastolic 54–78; PULSE 45–91; RESP 17–20; TEMP 97.5–98.7; O2SAT 92–97
--- NOTE | 2016-05-03 07:06 | HHI.FPPN ---
Subjective Remarks Feeling a little anxious about cardiac catheterization procedure scheduled for today. She denies any headache, nausea, vomiting, chest pain, palpitation, shortness of breath, abdominal pain, leg pain. She does however report that her legs have been chronically numb with decreased sensation for years, which she attributes to a combination of spinal stenosis, arthritis, slipped/herniated disc. She feels when someone is touching her legs, but it lacks sensitivity. She is eager to go home. (David Meza MD R1) Objective Vitals Vital Signs Date Time Temp Pulse Resp B/P Pulse Ox O2 Delivery O2 Flow Rate FiO2 05/03/16 05:00 64 05/03/16 04:00 54 05/03/16 03:00 45 108/65 95 05/03/16 03:00 75 05/03/16 02:00 57 05/03/16 01:00 81 05/03/16 00:00 64 05/02/16 23:00 97.7 81 108/60 94 05/02/16 23:00 81 05/02/16 22:00 72 05/02/16 21:00 68 05/02/16 20:00 97 05/02/16 19:00 83 05/02/16 19:00 97.7 83 128/71 95 05/02/16 18:03 93 05/02/16 17:54 98 21 05/02/16 17:39 66 05/02/16 16:18 78 05/02/16 16:00 98.8 87 18 125/89 95 05/02/16 15:00 82 05/02/16 14:52 78 05/02/16 14:00 73 05/02/16 13:00 74 05/02/16 12:00 69 05/02/16 11:56 98 05/02/16 11:00 75 05/02/16 11:00 97.9 75 16 133/72 97 05/02/16 10:00 95 05/02/16 09:00 90 05/02/16 08:00 93 05/02/16 08:00 98.8 77 18 143/44 98 05/02/16 08:00 79 I/O 05/02/16 05/02/16 05/02/16 05/03/16 05/03/16 05/03/16 07:00 15:00 23:00 07:00 15:00 23:00 Intake Total 576 ml 848 ml 120 ml Balance 576 ml 848 ml 120 ml Intake Oral 480 ml 720 ml 120 ml IV Total 96 ml 128 ml # Voids 2 6 2 # Bowel Movements 1 0 (David Meza MD R1) Result Diagram: 05/02/16 0641 05/02/16 0641 Imaging Last Impressions Chest X-Ray 05/01/16 0702 Signed Impressions: Service Date/Time: Sunday, May 01, 2016 07:19 - CONCLUSION: No acute intrathoracic disease. Alfredito Mcdaniel MD Objective Remarks GENERAL: This is a well-nourished, well-developed patient in no apparent distress. SKIN: No rashes, ecchymoses or lesions. Cool and dry. HEAD: Atraumatic. Normocephalic. EYES: Pupils equal round and reactive. Extraocular motions intact. No scleral icterus. No injection or drainage. CARDIOVASCULAR: Regular rate and rhythm without murmurs, gallops, or rubs. RESPIRATORY: Clear to auscultation. Breath sounds equal bilaterally. No wheezes , rales, or rhonchi. GASTROINTESTINAL: Abdomen soft, non-tender, nondistended. MUSCULOSKELETAL: Extremities without clubbing, cyanosis, or edema. No calf tenderness. NEUROLOGICAL: Awake and alert. Cranial nerves grossly intact. Normal speech. ( David Meza MD R1) A/P Assessment and Plan Patient is a 65-year-old female with a PMH significant for HTN. Admitted for an NTEMI. Planning for cardiac catheterization today. Discharge Planning d/c pending cardiac workup, likely today or tomorrow after cardiac catheterization planned for today. Patient seen and discussed with Dr. Kacie Alvarenga. Discussed with Dr. Zurita. (David Meza MD R1) Attending Attestation Pt. examined and case discussed with resident physicians I have read the above note and agree with the assessment/plan as discussed with me I was involved in all medical decision making for this patient Alfredito Zurita MD (Alfredito Zurita MD) Problem List: (1) NSTEMI (non-ST elevated myocardial infarction) Status: Acute Plan: NSTEMI with elevated troponins and nonspecific T wave changes on EKG. Cardiology consulted ([facility]) for likely cardiac catheterization today (05/03/16 ). Medical management will depend on results of cardiac catheterization. Troponin 0.05 -> 0.11 --> 0.25 (no active chest pain) CXR unremarkable LEILA-B therapy Heparin gtt Monitor on telemetry Lipid panel reviewed, A1C added to blood in lab - will calculate ASCVD risk to see if and what type of statin needed (2) HTN (hypertension) Status: Acute Plan: Beta karsten with metoprolol and started on lisinopril (will see if KRISS-I needs to be continued upon discharge) Vasotec PRN (3) Nutrition, metabolism, and development symptoms Status: Acute Plan: Diet: Healthy healthy Fluids: none Electrolytes: unremarkable, continue to monitor DVT PPX: Heparin drip for NSTEMI GI PPX: not indicated (David Meza MD R1) David Meza MD R1 May 03, 2016 07:06 Alfredito Zurita MD May 03, 2016 18:56
[2016-05-03 07:18] LABS: BICARBONATE 28.6 MEQ/L (21.0-32.0); POTASSIUM 3.7 MEQ/L (3.5-5.1)
[2016-05-03] MEDS: LISINOPRIL 5 MG TAB PO SCH (09:53)
[2016-05-03] MEDS: METOPROLOL TARTRATE 25 MG TAB PO SCH ×2 (09:53→20:50)
[2016-05-03] MEDS: ASPIRIN 81 MG CHEW TAB CHEW SCH (09:53)
[2016-05-03] MEDS: SODIUM CHLORIDE 0.9% FLUSH 5 ML FLUSH FLUSH SCH ×2 (09:54→21:01)
[2016-05-03] MEDS ORDERED: MIDAZOLAM HCL 2 MG/2 ML VIAL ONE ×3 (13:52→16:54)
[2016-05-03] MEDS ORDERED: HEPARIN-NS/PF INJ 500 ML ONE (13:52)
[2016-05-03] MEDS ORDERED: HEPARIN SODIUM - IV 10,000 UNITS/10 ML VIAL ONE ×2 (14:33→17:05)
[2016-05-03] MEDS ORDERED: CLOPIDOGREL 300 MG TAB ONE (14:57)
[2016-05-03] MEDS ORDERED: SODIUM CHLOR 0.9% 1000 ML INJ 1,000 ML IV SCH ×3 (15:06→18:20)
[2016-05-03] MEDS ORDERED: ONDANSETRON HCL 4 MG/2 ML VIAL ONE ×2 (15:11→16:36)
[2016-05-03] MEDS ORDERED: MISC INFORMATION XX ONE (15:15)
[2016-05-03] MEDS ORDERED: SODIUM CHLOR 0.9% 250 ML INJ 250 ML IV PRN ×2 (15:15→18:30)
[2016-05-03] MEDS ORDERED: IOHEXOL 350 MG/ML 100 ML BTL (for Cath Lab) OTHER ONE (15:44)
[2016-05-03] MEDS: MORPHINE SULFATE 4 MG/ML INJ IV PRN ×2 (16:07→23:59)
[2016-05-03] MEDS ORDERED: NITROGLYCERIN 0.4 MG SL 25 TABS/BTL SL ONE (16:27)
[2016-05-03] MEDS ORDERED: IODIXANOL 320 MG/ML 100 ML VIAL (for Cath Lab) OTHER ONE (16:49)
[2016-05-03] MEDS ORDERED: TIROFIBAN INFUSION INJ 250 ML IV ONE (17:05)
[2016-05-03] MEDS ORDERED: SODIUM NITROPRUSSIDE 50 MG/2 ML VIAL ONE (17:35)
[2016-05-03] MEDS ORDERED: PRASUGREL 10 MG TAB ONE (17:41)
[2016-05-03] MEDS ORDERED: HEPARIN-D5W INJ 250 ML ONE (17:44)
[2016-05-03] MEDS ORDERED: HEPARIN-D5W INJ 250 ML IV SCH (18:30)
[2016-05-03] MEDS ORDERED: TIROFIBAN INFUSION INJ 250 ML IV SCH (18:30)
[2016-05-03] MEDS ORDERED: ATROPINE SULFATE 1 MG/ML VIAL IV PRN (18:30)
[2016-05-03] MEDS ORDERED: LIDOCAINE HCL 1% 50 ML VIAL INFIL PRN (18:30)
[2016-05-03 19:26] LABS: HEMATOCRIT 40.6 % (35.0-46.0); MEAN CELL VOLUME 89.8 FL (80.0-100.0); MEAN CORPUSCULAR HEMOGLOBIN 29.3 PG (27.0-34.0); MEAN CORPUSCULAR HGB CONC 32.6 % (32.0-36.0); PLATELET COUNT 361 TH/MM3 (150-450); RED BLOOD COUNT 4.52 MIL/MM3 (4.00-5.30); RED CELL DISTRIBUTION WIDTH 14.1 % (11.6-17.2); REVIEW FLAG FINAL; WHITE BLOOD COUNT 12.3 TH/MM3 (4.0-11.0)
[2016-05-03 20:19] LABS: INTERNATIONAL NORMALIZED RATIO 1.1 RATIO; PROTHROMBIN TIME - PATIENT 11.7 SEC (9.8-11.6)
[2016-05-03 20:23] LABS: APTT (PATIENT) GREATER THAN 153.4 SEC (24.3-30.1)
[2016-05-03] MEDS: ATORVASTATIN 80 MG TAB PO SCH (20:50)
[2016-05-03] MEDS: ALPRAZolam 0.5 MG TAB PO PRN (20:59)
[2016-05-03] MEDS: ONDANSETRON HCL 4 MG/2 ML VIAL IV PRN (23:39)
[2016-05-04] VITALS (28 sets, daily range): BP systolic 100–115; BP diastolic 47–60; PULSE 59–93; RESP 18–20; TEMP 97.4–98.7; O2SAT 92–96
[2016-05-04 05:55] LABS: AUTOMATED NEUTROPHIL # 14.1 TH/MM3 (1.8-7.7); BASOPHIL # 0.1 TH/MM3 (0-0.2); BASOPHIL % 0.7 % (0.0-2.0); HEMATOCRIT 32.8 % (35.0-46.0); HEMO FLAGS DIFF FINAL; LYMPH % 10.5 % (9.0-44.0); LYMPHOCYTE # 1.8 TH/MM3 (1.0-4.8); MEAN CELL VOLUME 86.6 FL (80.0-100.0); MEAN CORPUSCULAR HEMOGLOBIN 29.9 PG (27.0-34.0); MEAN CORPUSCULAR HGB CONC 34.5 % (32.0-36.0); MONO % 6.5 % (0.0-8.0); NEUT % 82.3 % (16.0-70.0); PLATELET COUNT 301 TH/MM3 (150-450); RED BLOOD COUNT 3.79 MIL/MM3 (4.00-5.30); RED CELL DISTRIBUTION WIDTH 13.9 % (11.6-17.2); WHITE BLOOD COUNT 17.1 TH/MM3 (4.0-11.0)
[2016-05-04 06:01] LABS: APTT (PATIENT) 32.3 SEC (24.3-30.1)
[2016-05-04 06:29] LABS: POTASSIUM 3.5 MEQ/L (3.5-5.1)
[2016-05-04 06:49] LABS: HDL CHOLESTEROL 27.2 MG/DL (40.0-60.0)
[2016-05-04] MEDS ORDERED: CALCIUM CARBONATE 500 MG CHEWABLE TAB CHEW ONE ×2 (07:00)
[2016-05-04 07:10] LABS: CKMB 270.1 NG/ML (0.5-3.6)
[2016-05-04] MEDS: LISINOPRIL 5 MG TAB PO SCH (08:50)
[2016-05-04] MEDS: ASPIRIN 81 MG CHEW TAB PO SCH (08:50)
[2016-05-04] MEDS: METOPROLOL TARTRATE 25 MG TAB PO SCH ×2 (08:50→21:00)
[2016-05-04] MEDS: SODIUM CHLORIDE 0.9% FLUSH 5 ML FLUSH FLUSH SCH ×2 (08:50→21:00)
[2016-05-04] MEDS: PRASUGREL 10 MG TAB PO SCH (08:50)
[2016-05-04] MEDS: ACETAMINOPHEN 500 MG CPLT PO PRN ×2 (08:54→20:35)
--- NOTE | 2016-05-04 08:56 | HHI.FPPN ---
Subjective Remarks Patient went to cardiac catheterization at 1500 yesterday. She received a mid circumflex stent for NSTEMI. Shortly after cardiac catheterization, she suddenly experienced chest pain, shortness of breath, cold sweats, and vomiting. An EKG taken at 1635 showed STEMI with elevations in inferior leads 2 , 3, aVF, as well as V6, with reciprocal ST depressions in V1 through V4. Patient was taken back to the cardiac catheterization lab at 1745, where they discovered that her mid circumflex stent that had just been placed had become occluded. Except for some pulse in the 90s, blood pressure in the 100s to 140s over 40s to 70s, patient was afebrile with vital signs stable. She is currently complaining of back pain, extremity pain, which she attributes to the combination of her spinal stenosis and inability to move her extremities and uncomfortable hospital bed. She is currently denying any chest pain, shortness of breath, diaphoresis, nausea, vomiting, headache, vision changes. (David Meza MD R1) Objective Vitals Vital Signs Date Time Temp Pulse Resp B/P Pulse Ox O2 Delivery O2 Flow Rate FiO2 05/04/16 06:00 89 05/04/16 05:00 90 05/04/16 04:00 89 05/04/16 03:00 83 05/04/16 03:00 98.7 83 18 107/47 92 05/04/16 02:00 86 05/04/16 01:00 86 05/04/16 00:04 20 05/04/16 00:00 81 05/03/16 23:00 98.5 67 20 106/54 94 05/03/16 23:00 67 05/03/16 22:00 77 05/03/16 21:00 86 05/03/16 20:00 86 05/03/16 19:00 98.7 88 18 128/57 96 05/03/16 19:00 88 05/03/16 19:00 97.6 91 17 134/64 92 05/03/16 16:00 81 05/03/16 15:30 97.7 67 18 146/78 96 05/03/16 15:15 97.7 67 18 146/78 96 05/03/16 13:00 68 05/03/16 12:00 63 05/03/16 11:00 60 05/03/16 11:00 97.5 69 18 130/70 96 05/03/16 10:00 65 05/03/16 09:00 81 I/O 05/03/16 05/03/16 05/03/16 05/04/16 05/04/16 05/04/16 07:00 15:00 23:00 07:00 15:00 23:00 Intake Total 120 ml 300 ml 1691 ml Output Total 800 ml Balance 120 ml 300 ml 891 ml Intake Oral 120 ml 480 ml IV Total 300 ml 1211 ml Output Urine Total 800 ml # Voids 2 4 # Bowel Movements 0 (David Meza MD R1) Result Diagram: 05/04/16 0540 05/04/16 0540 Imaging Last Impressions Chest X-Ray 05/01/16 0702 Signed Impressions: Service Date/Time: Tuesday, May 01, 2016 07:19 - CONCLUSION: No acute intrathoracic disease. Alfredito Mcdaniel MD Objective Remarks GENERAL: This is a well-nourished, well-developed patient in no apparent distress. SKIN: Other than an occlusive dressing covering gauze in the right groin and an occlusive dressing covering a sheath with some minimal surrounding blood in the left groin, No rashes, ecchymoses or lesions. Cool and dry. HEAD: Atraumatic. Normocephalic. EYES: Pupils equal round and reactive. Extraocular motions intact. No scleral icterus. No injection or drainage. CARDIOVASCULAR: Regular rate and rhythm without murmurs, gallops, or rubs. RESPIRATORY: Clear to auscultation. Breath sounds equal bilaterally. No wheezes , rales, or rhonchi. GASTROINTESTINAL: Abdomen soft, non-tender, nondistended. MUSCULOSKELETAL: Extremities without clubbing, cyanosis, or edema. No calf tenderness. NEUROLOGICAL: Awake and alert and oriented. Cranial nerves grossly intact. Normal speech. (David Meza MD R1) A/P Assessment and Plan Patient is a 65-year-old female with a PMH significant for HTN. Admitted for an NTEMI. After cardiac catheterization with stent placement in the mid circumflex artery yesterday, 05/03/2016, patient experienced a STEMI with associated chest pain, diaphoresis, vomiting, shortness of breath and went back to the cardiac Vtc Technician where they found that the stent that had been placed in the mid circumflex had become occluded. This clotted stent was reopened. Discharge Planning d/c pending cardiology recommendations, likely today or tomorrow after cardiac catheterization yesterday, 05/03/2016. Patient seen and discussed with Dr. Brooke Alvarenga. (David Meza MD R1) Attending Attestation Pt. examined and case discussed with resident physicians I have read the above note and agree with the assessment/plan as discussed with me I was involved in all medical decision making for this patient Alfredito Zurita MD (Alfredito Zurita MD) Problem List: (1) STEMI (ST elevation myocardial infarction) Status: Acute Plan: Patient was taken to cardiac catheterization lab for the first time yesterday at 15:00 on 05/03/2016. Shortly after arriving back at her room after cardiac catheterization, she experienced sudden onset of chest pain, diaphoresis , vomiting, shortness of breath, with inferior STEMI noted on EKG at 1635. Patient was taken back to the Vtc Technician at 1745, where her occluded mid circumflex stent was found to be occluded and was reopened. Patient received Effient with second cardiac catheterization yesterday. Continue to monitor on telemetry Anticipate cardiology recommendations Effient (2) NSTEMI (non-ST elevated myocardial infarction) Status: Acute Plan: NSTEMI with elevated troponins and nonspecific T wave changes on EKG. Cardiology consulted ([facility]) for cardiac catheterization yesterday (05/03/16). Anticipate cardiology recommendations regarding medical management, which will likely include a beta akrsten and statin, antiplatelet versus anticoagulant. Troponin 0.05 -> 0.11 --> 0.25 (no active chest pain until yesterday after first cardiac catheterization) CXR unremarkable Effient Monitor on telemetry Lipid panel reviewed, A1C of 5.9 -ASCVD risk calculator shows a 19% 10 year ASCVD risk, and recommends a moderate to high intensity statin (3) HTN (hypertension) Status: Acute Plan: Beta karsten with metoprolol and started on lisinopril (will see if KRISS-I needs to be continued upon discharge) Vasotec PRN (4) Nutrition, metabolism, and development symptoms Status: Acute Plan: Diet: Healthy healthy Fluids: none Electrolytes: unremarkable, continue to monitor DVT PPX: Heparin drip for STEMI GI PPX: not indicated (David Meza MD R1) David Meza MD R1 May 04, 2016 08:56 Alfredito Zurita MD May 04, 2016 14:58
[2016-05-04] MEDS ORDERED: ASPIRIN 81 MG CHEW TAB PO SCH (09:00)
[2016-05-04] MEDS ORDERED: CLOPIDOGREL 75 MG TAB PO SCH (09:00)
[2016-05-04 10:24] LABS: APTT (PATIENT) 28.5 SEC (24.3-30.1)
[2016-05-04] MEDS: ONDANSETRON HCL 4 MG/2 ML VIAL IV PRN (12:31)
[2016-05-04] MEDS: MORPHINE SULFATE 4 MG/ML INJ IV PRN (12:32)
--- NOTE | 2016-05-04 14:37 | EKG ---
Date Performed: 05/03/2016 Time Performed: 16:35:00 PTAGE: 65 years EKG: CONSIDER ACUTE ST ELEVATION ND Sinus rhythm Incomplete LBBB Inferior ST elevation, CONSIDER ACUTE INFARCT Marked precordial ST depression, CONSI ALEKS ACUTE INFARCT Anteroseptal T wave changes suggest myocardial injury/ischemia Compared to the prev ious tracing, patient has developed an acute inferolateral ST segment elevation infarct. Clinical co rrelation will be extremely important. Abnormal ECG PREVIOUS TRACING : 05/01/2016 17.35 DOCTOR: Stephanie Nielson Interpretating Date/Time 05/04/2016 14:35:52
--- NOTE | 2016-05-04 14:38 | EKG ---
Date Performed: 05/04/2016 Time Performed: 06:05:24 PTAGE: 65 years EKG: Sinus rhythm Left axis deviation IV conduction defect Extensive T wave changes may be due to myocardial ischemia Compared to the previous tracing, inferolateral transmural injury pattern has resolved. There has be en some leftward shift in the axis and a loss of lateral R wave forces possibly secondary to the infe rior wall infarct. Clinical correlation is important. Abnormal ECG PREVIOUS TRACING : 05/03/2016 16.35 DOCTOR: Stephanie Nielson Interpretating Date/Time 05/04/2016 14:37:06
[2016-05-04] MEDS: ATORVASTATIN 80 MG TAB PO SCH (20:34)
[2016-05-04] MEDS ORDERED: PILL SPLITTER OTHER PRN (21:00)
[2016-05-05] VITALS (12 sets, daily range): BP systolic 87–102; BP diastolic 50–55; PULSE 88–107; RESP 18; TEMP 97.4–98.1; O2SAT 92–98
[2016-05-05 07:08] LABS: HEMATOCRIT 31.6 % (35.0-46.0); MEAN CELL VOLUME 87.6 FL (80.0-100.0); MEAN CORPUSCULAR HEMOGLOBIN 30.2 PG (27.0-34.0); MEAN CORPUSCULAR HGB CONC 34.5 % (32.0-36.0); PLATELET COUNT 278 TH/MM3 (150-450); RED BLOOD COUNT 3.61 MIL/MM3 (4.00-5.30); RED CELL DISTRIBUTION WIDTH 14.1 % (11.6-17.2); REVIEW FLAG FINAL; WHITE BLOOD COUNT 12.2 TH/MM3 (4.0-11.0)
[2016-05-05 07:30] LABS: BICARBONATE 23.9 MEQ/L (21.0-32.0); POTASSIUM 3.3 MEQ/L (3.5-5.1)
--- NOTE | 2016-05-05 08:24 | HHI.FPPN ---
Subjective Remarks No acute events overnight. Except for some low bp of 80s/50s, AF and VSS. Pt's only concerns are about her blood pressure and getting home today. She denies any dizziness, lightheadedness, presyncope, and had normal bp of 102/55 on exam , so she was reassured. Informed pt that her d/c is pending cardiology recommendations, and that she would be discharged on daily home medications, she should quit smoking, and have a walking exercise routine. She denies any CP , SOB, edema. (David Meza MD R1) Objective Vitals Vital Signs Date Time Temp Pulse Resp B/P Pulse Ox O2 Delivery O2 Flow Rate FiO2 05/05/16 05:00 88 05/05/16 04:00 97.9 89 18 87/52 93 05/05/16 04:00 92 05/05/16 03:00 88 05/05/16 02:00 90 05/05/16 01:00 90 05/05/16 00:00 97.4 90 18 99/54 92 05/05/16 00:00 98 05/04/16 23:00 88 05/04/16 22:00 88 05/04/16 21:00 87 05/04/16 20:00 97.9 93 18 100/52 96 05/04/16 20:00 90 05/04/16 19:00 92 05/04/16 18:05 86 05/04/16 17:00 85 05/04/16 16:00 90 05/04/16 15:42 97.8 79 18 103/57 93 05/04/16 15:00 80 05/04/16 14:00 80 05/04/16 13:00 72 05/04/16 12:00 73 05/04/16 11:44 97.4 75 20 106/60 92 05/04/16 11:20 93 Nasal Cannula 4.00 05/04/16 11:00 70 05/04/16 10:00 74 05/04/16 09:00 90 05/04/16 08:55 98.3 91 18 92 115/53 I/O 05/04/16 05/04/16 05/04/16 05/05/16 05/05/16 05/05/16 07:00 15:00 23:00 07:00 15:00 23:00 Intake Total 1691 ml 720 ml 480 ml Output Total 800 ml 800 ml Balance 891 ml -80 ml 480 ml Intake Oral 480 ml 720 ml 480 ml IV Total 1211 ml Output Urine Total 800 ml 800 ml # Voids 4 # Bowel Movements 0 (David Meza MD R1) Result Diagram: 05/05/16 0604 05/05/16 0604 Imaging Last Impressions Chest X-Ray 05/01/16 0702 Signed Impressions: Service Date/Time: Sunday, May 01, 2016 07:19 - CONCLUSION: No acute intrathoracic disease. Alfredito Mcdaniel MD Objective Remarks GENERAL: This is a well-nourished, well-developed patient in no apparent distress. SKIN: BL groin dressings c/d/i, No rashes, ecchymoses or lesions. Cool and dry. HEAD: Atraumatic. Normocephalic. EYES: Pupils equal round and reactive. Extraocular motions intact. No scleral icterus. No injection or drainage. CARDIOVASCULAR: Regular rate and rhythm without murmurs, gallops, or rubs. RESPIRATORY: Clear to auscultation. Breath sounds equal bilaterally. No wheezes , rales, or rhonchi. GASTROINTESTINAL: Abdomen soft, non-tender, nondistended. MUSCULOSKELETAL: Extremities without clubbing, cyanosis, or edema. No calf tenderness. NEUROLOGICAL: Awake and alert and oriented. Cranial nerves grossly intact. Normal speech. (David Meza MD R1) A/P Assessment and Plan Patient is a 65-year-old female with a PMH significant for HTN. Admitted for an NTEMI. After cardiac catheterization with stent placement in the mid circumflex artery on 05/03/2016, patient experienced a STEMI with associated chest pain, diaphoresis, vomiting, shortness of breath and went back to the [facility] where they found that the stent that had been placed in the mid circumflex had become occluded. This clotted stent was reopened. Discharge Planning d/c pending cardiology recommendations, likely today or tomorrow after cardiac catheterization on 05/03/2016. Patient seen and discussed with Dr. Brooke Alvarenga. (David Meza MD R1) Attending Attestation Pt. examined and case discussed with resident physicians I have read the above note and agree with the assessment/plan as discussed with me I was involved in all medical decision making for this patient Alfredito Zurita MD (Alfredito Zurita MD) Problem List: (1) STEMI (ST elevation myocardial infarction) Status: Acute Plan: Patient was taken to cardiac catheterization lab for the first time at 15 :00 on 05/03/2016. Shortly after arriving back at her room after cardiac catheterization, she experienced sudden onset of chest pain, diaphoresis, vomiting, shortness of breath, with inferior STEMI noted on EKG at 1635. Patient was taken back to the [facility] at 1745, where her occluded mid circumflex stent was found to be occluded and was reopened. Patient received Effient with second cardiac catheterization yesterday. Continue to monitor on telemetry Anticipate cardiology recommendations: Likely discharge patient on beta karsten , statin, KRISS inhibitor, baby aspirin, etc. Effient daily (2) NSTEMI (non-ST elevated myocardial infarction) Status: Acute Plan: NSTEMI with elevated and up trending troponins and nonspecific T wave changes on EKG. Cardiology consulted (Felipe) for cardiac catheterization on 05/03/16. Anticipate cardiology recommendations regarding medical management, which will likely include a beta karsten and statin, Effient, KRISS inhibitor, baby aspirin, etc. Effient Monitor on telemetry Lipid panel reviewed, A1C of 5.9, suggestive of prediabetes -Recommended daily exercise/walking routine and well-balanced diet -ASCVD risk calculator shows a 19% 10 year ASCVD risk, and recommends a moderate to high intensity statin (3) HTN (hypertension) Status: Acute Plan: Beta karsten with metoprolol and started on lisinopril (will see if KRISS-I needs to be continued upon discharge) Vasotec PRN (4) Nutrition, metabolism, and development symptoms Status: Acute Plan: Diet: Healthy healthy Fluids: none Electrolytes: unremarkable, continue to monitor DVT PPX: Effient GI PPX: not indicated (David Meza MD R1) David Meza MD R1 May 05, 2016 08:24 Alfredito Zurita MD May 05, 2016 12:52
[2016-05-05] MEDS: METOPROLOL TARTRATE 25 MG TAB PO SCH (09:00)
[2016-05-05] MEDS ORDERED: LISINOPRIL 5 MG TAB PO SCH (09:00)
[2016-05-05] MEDS: SODIUM CHLORIDE 0.9% FLUSH 5 ML FLUSH FLUSH SCH (09:00)
[2016-05-05] MEDS: ASPIRIN 81 MG CHEW TAB PO SCH (09:04)
[2016-05-05] MEDS: PRASUGREL 10 MG TAB PO SCH (09:04)
[2016-05-05] MEDS ORDERED: LOPERAMIDE HCL 2 MG CAP PO ONE (15:00)
[2016-05-05] MEDS ORDERED: LISI2.5T3 PO (17:21)
[2016-05-05] MEDS ORDERED: METO25TA3 PO (17:21)
[2016-05-05] MEDS ORDERED: PRAS10TA PO (17:21)
[2016-05-05] MEDS ORDERED: Aspirin Chew PO (17:21)
[2016-05-05] MEDS ORDERED: LIPI80TA PO (17:21)
--- NOTE | 2016-05-05 17:24 | HHI.DCPOC ---
Discharge Care Plan Diagnosis: (1) NSTEMI (non-ST elevated myocardial infarction) (2) STEMI (ST elevation myocardial infarction) (3) HTN (hypertension) Goals to Promote Your Health * To prevent worsening of your condition and complications, please take your medications as prescribed. Also, follow up with your doctors as instructed. * To maintain your health at the optimal level, stop smoking, eat a well balanced diet, and walk every day for exercise. Directions to Meet Your Goals Take your medications as prescribed Follow your dietary instruction Follow activity as directed Keep your appointments as scheduled Take your immunizations and boosters as scheduled If your symptoms worsen call your PCP, if no PCP go to Urgent Care Center or Emergency Room Smoking is Dangerous to Your Health. Avoid second hand smoke Call the 24-hour hour crisis hotline for domestic abuse at David Meza MD R1 May 05, 2016 17:24
--- NOTE | 2016-05-06 23:31 | MA ---
cc: MADDIE LEPE DATE: 05/03/2016 INDICATION: Non-ST elevation myocardial infarction. Class IV angina. PROCEDURE PERFORMED: 1. Retrograde left heart catheterization with left ventriculography and selective coronary angiography. 2. Angioplasty and stenting of the left circumflex artery. ACCESS SITE: Right femoral artery. EQUIPMENT USED: A 5-Estonian pigtail catheter, 5-Estonian JL4 and AR modified coronary catheters. XB-3 1.5 guide, Marker wire, 2.0 Non-Compliant and 2.5 Non-Compliant balloons for pre-dilatation, 2.75 x 12-mm Resolute stent at 16 atmospheres. MEDICATIONS: Versed IV. Fentanyl IV. Heparin IV. Nitroglycerin IC. Plavix 600 mg p.o. CONTRAST: Omnipaque 200 cc. COMPLICATIONS: None. ESTIMATED BLOOD LOSS: Less than 10 cc. METHOD OF HEMOSTASIS: AngioSeal closure. RESULTS A. HEMODYNAMICS: Heart rate 72 beats per minute. Left ventricular end-diastolic pressure 11 mmHg. Left ventricle 140/11. Aorta 140/76/100. B. LEFT VENTRICULOGRAPHY: Left ventricular ejection fraction 50%. Wall motion normal. No mitral valve regurgitation. C. CORONARY ANGIOGRAPHY: The left main coronary artery has 20% stenosis in the distal portion. The left anterior descending coronary artery is patent. First diagonal artery is patent. The left circumflex artery has focal 80% stenosis in the mid-portion. OM1 patent. OM2 patent. The right coronary artery is a dominant vessel which has 30% stenosis in the mid-portion. PDA patent. PLV patent. The right ventricular branch had 60% ostial stenosis. The stenosis in the mid-circumflex artery was 80%, lesion length 7 mm. Pre-KATIA flow 3, post-KATIA flow 3. Post-stenosis 0. There was significant calcification of the vessel. DIAGNOSES: 1. Non-ST elevation myocardial infarction. 2. Coronary artery disease with 80% stenosis of the mid-left circumflex artery. 3. Borderline normal left ventricular systolic function. 4. Successful angioplasty and stenting of the mid-left circumflex artery. DISPOSITION: Ms. Bray will be monitored on telemetry after the procedure. We will continue therapy with Plavix for at least one year and aspirin indefinitely. We will continue aggressive modification of her cardiac risk factors. I will see her back for followup in our office after discharge. MD MIMI English /3:06 PM /11:07 PM MTDJon
--- NOTE | 2016-05-07 08:35 | MA ---
cc: MADDIE LEPE Cardiac Catheterization Laboratory DATE: 05/03/[address] elevation myocardial infarction, class IV angina, recent left circumflex artery stenting. PROCEDURE PERFORMED 1. Left coronary artery angiogram. 2. Thrombectomy and angioplasty of the left circumflex artery. ACCESS SITE Left femoral artery. EQUIPMENT USED XB 3.5 guide, BMW wire, [place] thrombectomy catheter, 3.0 x 8 mm noncompliant balloon. CONTRAST Visipaque 90 cc. MEDICATION Versed IV, Fentanyl IV, heparin IV, Aggrastat IV, Effient p.o., nitroglycerin IC, nitroprusside IC. COMPLICATIONS None. ESTIMATED BLOOD LOSS Less than 10 cc. METHOD OF HEMOSTASIS Left femoral sheath left in place. RESULTS Mid left circumflex artery stent was occluded with thrombus. The lesion length was 9 mm. Pre KATIA flow 0, post KATIA flow III, post stenosis 0. Post interventional angiography revealed no evidence of dissection or stent thrombosis. DIAGNOSIS 1. ST elevation myocardial infarction. 2. Left circumflex artery stent thrombosis. 3. Successful thrombectomy and angioplasty of the left circumflex artery. DISPOSITION Ms. Bray will be monitored on telemetry. Her Plavix was changed to Effient. We will continue aspirin. We will also continue IV heparin and IV Aggrastat overnight. MD CRYSTAL English/WILLIE /5:52 PM /8:12 AM [place]
[2016-05-10] MEDS ORDERED: PROM6.256 PO (16:06)
[2016-05-10] MEDS ORDERED: REST30CA PO (16:06)
--- NOTE | 2016-06-15 15:28 | HHI.DS ---
Discharge Summary Admission Date May 01, 2016 at 13:57 Admitting Diagnosis Chest pain (1) STEMI (ST elevation myocardial infarction) Diagnosis: Principal Plan: Patient was taken to cardiac catheterization lab for the first time at 15 :00 on 05/03/2016. Shortly after arriving back at her room after cardiac catheterization, she experienced sudden onset of chest pain, diaphoresis, vomiting, shortness of breath, with inferior STEMI noted on EKG at 1635. Patient was taken back to the [facility] at 1745, where her occluded mid circumflex stent was found to be occluded and was reopened. Patient received Effient with second cardiac catheterization yesterday. Continue to monitor on telemetry Anticipate cardiology recommendations: Likely discharge patient on beta karsten , statin, KRISS inhibitor, baby aspirin, etc. Effient daily (2) NSTEMI (non-ST elevated myocardial infarction) Diagnosis: Principal Plan: NSTEMI with elevated and up trending troponins and nonspecific T wave changes on EKG. Cardiology consulted (Felipe) for cardiac catheterization on 05/03/16. Anticipate cardiology recommendations regarding medical management, which will likely include a beta karsten and statin, Effient, KRISS inhibitor, baby aspirin, etc. Effient Monitor on telemetry Lipid panel reviewed, A1C of 5.9, suggestive of prediabetes -Recommended daily exercise/walking routine and well-balanced diet -ASCVD risk calculator shows a 19% 10 year ASCVD risk, and recommends a moderate to high intensity statin (3) HTN (hypertension) Diagnosis: Secondary Plan: Beta karsten with metoprolol and started on lisinopril (will see if KRISS- I needs to be continued upon discharge) Vasotec PRN (4) Nutrition, metabolism, and development symptoms Diagnosis: Secondary Plan: Diet: Healthy healthy Fluids: none Electrolytes: unremarkable, continue to monitor DVT PPX: Effient GI PPX: not indicated [facility] Cardiology Procedures Cardiac catheterization 2 Brief History 65 yo woman with a h/o HTN and a long history of tobacco use, smoking 1ppd x50 years, presented to the ED with a complaint of chest discomfort. She woke up with chest pressure described as a squeezing sensation that was midsternal/ substernal radiating up to her bilateral jaw. She felt fatigued and diaphoretic with nausea associated with her chest pain. These symptoms lasted for approximately 1-2 hours before spontaneously resolving. She denies syncope , denies palpitations, denies feeling SOB. Imaging Last Impressions Chest X-Ray 05/01/16 0702 Signed Impressions: Service Date/Time: Sunday, May 01, 2016 07:19 - CONCLUSION: No acute intrathoracic disease. Alfredito Mcdaniel MD PE at Discharge GENERAL: This is a well-nourished, well-developed patient in no apparent distress. SKIN: BL groin dressings c/d/i, No rashes, ecchymoses or lesions. Cool and dry. HEAD: Atraumatic. Normocephalic. EYES: Pupils equal round and reactive. Extraocular motions intact. No scleral icterus. No injection or drainage. CARDIOVASCULAR: Regular rate and rhythm without murmurs, gallops, or rubs. RESPIRATORY: Clear to auscultation. Breath sounds equal bilaterally. No wheezes , rales, or rhonchi. GASTROINTESTINAL: Abdomen soft, non-tender, nondistended. MUSCULOSKELETAL: Extremities without clubbing, cyanosis, or edema. No calf tenderness. NEUROLOGICAL: Awake and alert and oriented. Cranial nerves grossly intact. Normal speech. Hospital Course Pt admitted for NSTEMI with elevated and up trending troponins and nonspecific T wave changes on EKG. Cardiology consulted (Dr. Wang) for cardiac catheterization. Patient was taken to cardiac catheterization lab for the first time at 15:00 on 05/03/2016. Shortly after arriving back at her room after cardiac catheterization, she experienced sudden onset of chest pain, diaphoresis , vomiting, shortness of breath, with inferior STEMI noted on EKG at 16:35. Patient was taken back to the [facility] at 17:45, where her occluded mid circumflex stent was found to be thrombosed and 100% occluded, so it was reopened. Patient received Effient with second cardiac catheterization. Pt's beta karsten was titrated, pt was started on a statin, Effient, KRISS inhibitor, baby aspirin, and pt's amlodipine was discontinued. Pt Condition on Discharge: Good Discharge Disposition: Discharge Home Discharge Instructions DIET: Follow Instructions for: Heart Healthy Diet Activities you can perform: Regular-No Restrictions Other Activity Instructions: Please ask your design architect before starting any strenuous activities. Follow up Referrals: Cardiology - 2 Weeks with Alok Wang MD PCP Follow-up - 1 Week New Medications: Lisinopril (Lisinopril) 2.5 Mg Tab 2.5 MG PO DAILY #30 Ref 0 TAB Atorvastatin (Lipitor) 80 Mg Tab 80 MG PO HS #30 TAB Metoprolol Tartrate (Metoprolol Tartrate) 25 Mg Tab 12.5 MG PO BID #60 TAB Prasugrel (Effient) 10 Mg Tab 10 MG PO DAILY #30 TAB ([Aspirin Chew]) 81 MG CHEW 81 MG PO DAILY #30 TAB.CHEW Discontinued Medications: Amlodipine (Amlodipine) 2.5 Mg Tab 2.5 MG PO DAILY Blood Pressure Management #30 Ref 0 TAB Metoprolol Succinate ER 24 HR (Metoprolol Succinate ER 24 HR) 50 Mg Tab 50 MG PO DAILY #30 Ref 0 TAB David Meza MD R1 Jun 15, 2016 15:28
[2016-06-22] MEDS ORDERED: REST15CA PO (14:39)
[2016-06-22] MEDS ORDERED: METO50TA PO (14:39)
[2016-06-22] MEDS ORDERED: ALPR.5 PO (14:39)
[2016-06-22] MEDS ORDERED: FURO20TA PO (14:39)
[2016-06-22] MEDS ORDERED: PROM6.256 PO (14:39)
[2016-06-22] MEDS ORDERED: Aspirin Chew PO (14:39)
[2016-06-22] MEDS ORDERED: MECL-62 PO (14:39)
[2016-06-22] MEDS ORDERED: PRAS10TA PO (14:39)
[2016-06-22] MEDS ORDERED: GUAI100S7 PO (14:39)
[2016-06-22] MEDS ORDERED: LIPI80TA PO (14:39)
[2016-06-22] MEDS ORDERED: SPIR25TA PO (14:57)
[2016-06-29] MEDS ORDERED: FURO20TA PO (14:22)
[2016-06-29] MEDS ORDERED: VENTAER INH (14:42)
[2016-07-07] MEDS ORDERED: FLUTI44I INH (10:35)
[2016-07-29] MEDS ORDERED: ALPR.5 PO (16:16)
[2016-07-29] MEDS ORDERED: PROM6.256 PO (16:16)
[2016-07-29] MEDS ORDERED: REST15CA PO (16:16)
[2016-07-29] MEDS ORDERED: SERT25TA83 PO (16:41)
[2016-08-23] MEDS ORDERED: ALPR.5 PO (09:01)
[2016-08-27] MEDS ORDERED: FURO40TA PO (17:18)
[2016-09-27] MEDS ORDERED: PNEU13P IM ×2 (09:40→09:51)
[2016-09-27] MEDS ORDERED: TENI5INJ IM (09:40)
[2016-09-27] MEDS ORDERED: TETA1INJ5 IM (09:56)
== END 2016-05-05 17:39 | disposition home or self-care (01) | DRG 247 ==
LOC: NEPC 06:33 → NEDA 08:45 → OBSVTOIN 13:57 → HCIS 15:49
PROVIDERS: ADMIT Family Medicine; ATTEND Family Medicine
PROC: 02C03ZZ Extirpation of Matter from Coronary Artery, One Artery, Percutaneous Approach (ICD-10-PCS; 2016-05-03)
PROC: 02703ZZ Dilation of Coronary Artery, One Artery, Percutaneous Approach (ICD-10-PCS; 2016-05-03)
PROC: 4A023N7 Measurement of Cardiac Sampling and Pressure, Left Heart, Percutaneous Approach (ICD-10-PCS; 2016-05-03)
PROC: B2111ZZ Fluoroscopy of Multiple Coronary Arteries using Low Osmolar Contrast (ICD-10-PCS; 2016-05-03)
PROC: B2151ZZ Fluoroscopy of Left Heart using Low Osmolar Contrast (ICD-10-PCS; 2016-05-03)
PROC: B2101ZZ Fluoroscopy of Single Coronary Artery using Low Osmolar Contrast (ICD-10-PCS; 2016-05-03)
PROC: 027034Z Dilation of Coronary Artery, One Artery with Drug-eluting Intraluminal Device, Percutaneous Approach (ICD-10-PCS; principal; 2016-05-03 13:45)
DX: I21.4 Non-ST elevation (NSTEMI) myocardial infarction (principal); I10 Essential (primary) hypertension; T82.867A Thrombosis due to cardiac prosthetic devices, implants and grafts, initial encounter; I22.1 Subsequent ST elevation (STEMI) myocardial infarction of inferior wall; F17.210 Nicotine dependence, cigarettes, uncomplicated; D72.829 Elevated white blood cell count, unspecified; Y83.1 Surgical operation with implant of artificial internal device as the cause of abnormal reaction of the patient, or of later complication, without mention of misadventure at the time of the procedure
CPT/HCPCS: 71010; 80048; 80053; 80061; 82550; 82552; 82565; 83036; 83735; 83880; 84484; 85002; 85025; 85027; 85610; 85730; 92920; 92928; 92941; 92973; 93005; 93454; 93458; 96374; C1725; C1757; C1760; C1769; C1874; C1887; C1893; G0269; J1644; J2250; J2270; J2405; J3010; J3246; J7030; J7040; Q9967

== ENCOUNTER 2016-06-15 09:58 | Emergency (ER) | payer MEDICARE, OTHER ==
[~2016-06-15 09:58] MED LIST changes: +Aspirin Chew PO; -DILA100C; +LIPI80TA PO; +LISI2.5T3 PO; +METO25TA3 PO; +PRAS10TA PO; +PROM6.256 PO; +REST30CA PO
[2016-06-15 10:02] VITALS: BP 135/76; PULSE 102; RESP 18; TEMP 97.8; O2SAT 95
--- NOTE | 2016-06-15 10:28 | PD ---
HPI Chief Complaint: Respiratory Symptoms Time Seen by Provider: 10:21 Travel History International Travel<30 days: No Contact w/Intl Traveler<30days: No History of Present Illness HPI Patient is a 66-year-old female with history of CAD with recent stent/in-stent thrombosis here with complaint of shortness of breath. Patient was hospitalized in April. On 05/03 she was underwent cardiac catheterization with angioplasty and stent of the left circumflex artery for non-ST elevation WA. Approximately 2 hours post cardiac catheter her pain worsened and she had an EKG showing an ST elevation WA and was taken back to the [facility] with a in- stent thrombosis that had successful thrombectomy and angioplasty. Since, patient has been managed on Effient. She has been compliant with this. At approximately 12:30 AM this morning patient woke up with complaint of shortness of breath. No chest pain. States the shortness of breath is worse when laying flat. No cough or chest congestion. Patient states that she heard "a Velcro" when she was breathing. She has not noticed any peripheral edema and denies any history of heart failure. PFSH Past Medical History Asthma: No Heart Rhythm Problems: No Cancer: No Cardiac Catheterization: Yes (left circumflex stent 05/03/16) High Cholesterol: No Chest Pain: Yes Congestive Heart Failure: No COPD: No Cerebrovascular Accident: No Diminished Hearing: No Endocrine: No Genitourinary: No Hypertension: Yes Immune Disorder: No Musculoskeletal: No Psychiatric: No Reproductive: No Respiratory: No Seizures: Yes (seizures in 30's - resolved) Sleep Apnea: No Menopausal: Yes Past Surgical History Cholecystectomy: Yes Gynecologic Surgery: Yes (hysterectomy) Hysterectomy: Yes (Full) Social History Alcohol Use: No Tobacco Use: Yes (1 ppd x 42 years) Substance Use: No Allergies-Medications (Allergen,Severity, Reaction): Coded Allergies: No Known Allergies (Verified , 06/15/16) Reported Meds & Prescriptions Reported Meds & Active Scripts Active Promethazine-Codeine Liq 6.25-10 Mg/5 Ml Syrp 10 Ml PO Q6H PRN Restoril (Temazepam) 30 Mg Cap 30 Mg PO HS PRN Lisinopril 2.5 Mg Tab 2.5 Mg PO DAILY Effient (Prasugrel) 10 Mg Tab 10 Mg PO DAILY Metoprolol Tartrate 25 Mg Tab 12.5 Mg PO BID [Aspirin Chew] 81 MG Chew 81 Mg PO DAILY Lipitor (Atorvastatin Calcium) 80 Mg Tab 80 Mg PO HS Review of Systems Except as stated in HPI: all other systems reviewed are Neg Physical Exam Narrative GENERAL: Well-appearing female anxious but in no acute distress SKIN: Warm and dry. HEAD: Normocephalic. EYES: No scleral icterus. No injection or drainage. ENT: Mucous membranes pink and moist. NECK: Supple CARDIOVASCULAR: Borderline tachycardia with heart rate in the 90s to 100s, regular rhythm. No murmur appreciated. RESPIRATORY: No accessory muscle use. Clear to auscultation. Slightly decreased in bilateral bases GASTROINTESTINAL: Obese MUSCULOSKELETAL: No obvious deformities. No edema. NEUROLOGICAL: Awake and alert. Motor grossly within normal limits. Normal speech. PSYCHIATRIC: Appropriate mood and affect; insight and judgment normal. Data Data Last Documented VS Vital Signs Date Time Temp Pulse Resp B/P Pulse Ox O2 Delivery O2 Flow Rate FiO2 06/15/16 10:40 98 22 136/88 93 Room Air 89/51 06/15/16 10:33 2 06/15/16 10:02 97.8 Orders Electrocardiogram (06/15/16 10:21) Basic Metabolic Panel (Bmp) (06/15/16 10:21) B-Type Natriuretic Peptide (06/15/16 10:21) Ckmb (Isoenzyme) Profile (06/15/16 10:21) Complete Blood Count With Diff (06/15/16 10:21) Magnesium (Mg) (06/15/16 10:21) Prothrombin Time / Inr (Pt) (06/15/16 10:21) Act Partial Throm Time (Ptt) (06/15/16 10:21) Troponin I (06/15/16 10:21) Chest, Single Ap (06/15/16 10:21) Ecg Monitoring (06/15/16 10:21) Bilateral Bp Monitoring (06/15/16 10:21) Iv Access Insert/Monitor (06/15/16 10:21) Oximetry (06/15/16 10:21) Oxygen Administration (06/15/16 10:21) Sodium Chloride 0.9% Flush (Ns Flush) (06/15/16 10:30) Nitroglycerin Sl (Nitrostat Sl) (06/15/16 10:30) Labs Laboratory Tests Test 06/15/16 10:20 White Blood Count 13.4 TH/MM3 Red Blood Count 4.24 MIL/MM3 Hemoglobin 12.1 GM/DL Hematocrit 36.7 % Mean Corpuscular Volume 86.5 FL Mean Corpuscular Hemoglobin 28.6 PG Mean Corpuscular Hemoglobin 33.1 % Concent Red Cell Distribution Width 16.3 % Platelet Count 382 TH/MM3 Mean Platelet Volume 7.7 FL Neutrophils (%) (Auto) 78.7 % Lymphocytes (%) (Auto) 13.7 % Monocytes (%) (Auto) 5.1 % Eosinophils (%) (Auto) 2.0 % Basophils (%) (Auto) 0.5 % Neutrophils # (Auto) 10.5 TH/MM3 Lymphocytes # (Auto) 1.8 TH/MM3 Monocytes # (Auto) 0.7 TH/MM3 Eosinophils # (Auto) 0.3 TH/MM3 Basophils # (Auto) 0.1 TH/MM3 CBC Comment DIFF FINAL Differential Comment Prothrombin Time 11.4 SEC Prothromb Time International 1.0 RATIO Ratio Activated Partial 33.0 SEC Thromboplast Time Sodium Level 139 MEQ/L Potassium Level 4.4 MEQ/L Chloride Level 107 MEQ/L Carbon Dioxide Level 22.5 MEQ/L Anion Gap 10 MEQ/L Blood Urea Nitrogen 16 MG/DL Creatinine 0.88 MG/DL Estimat Glomerular Filtration 64 ML/MIN Rate Random Glucose 135 MG/DL Calcium Level 9.0 MG/DL Magnesium Level 2.0 MG/DL Total Creatine Kinase 78 U/L Troponin I 0.02 NG/ML B-Type Natriuretic Peptide 564 PG/ML MDM Medical Decision Making Medical Screen Exam Complete: Yes Emergency Medical Condition: Yes Medical Record Reviewed: Yes Differential Diagnosis 66-year-old female with history of CAD with STEMI and left circumflex stent/in- stent thrombosis in April 2016 here with complaint of shortness of breath worse when laying flat since 12:30 AM. Differential includes ACS, new onset heart failure, arrhythmia, symptomatic anemia, electrolyte abnormality. Patient is a [id number] smoker, but denies any known history of COPD and her lungs are clear to auscultation making this less likely. No recent travel or risk factors to suggest PE. Additionally she is anticoagulated on Effient which would make this less likely. Narrative Course Patient placed on monitor, IV established and blood obtained. Twelve-lead EKG is of poor baseline quality due to patient's anxiety, but I do not visualize any evidence of new ST abnormalities. Patient has interventricular conduction delay, left axis deviation in Q waves inferiorly as well as T-wave inversions laterally in V5 and V6 which is similar to her previous EKG. Patient had taken aspirin prior to arrival, was given nitroglycerin here. Portable chest x-ray obtained that by my read shows cardiomegaly but no acute abnormalities. CBC, BMP, magnesium, CK-MB, troponin, coags, BNP notable only for minimally elevated BNP. I spoke with patient's office clin asst, Dr. emery, who is okay with disposition to home. We'll arrange outpatient follow-up for late this week or early next week. Diagnosis Primary Impression: Dyspnea on exertion Referrals: Alok Emery MD 3 days Additional Instructions: Call Dr. emery for outpatient follow-up appointment late this week or early next week as discussed. Return to the ER for the warning signs discussed. Med/Other Pt SpecificInfo: No Change to Meds Disposition: 01 DISCHARGE HOME Condition: Stable Meka Vargas MD Jun 15, 2016 10:28
[2016-06-15] MEDS: NITROGLYCERIN 0.4 MG SL 25 TABS/BTL SL SCH ×2 (10:30→10:35)
[2016-06-15] MEDS ORDERED: SODIUM CHLORIDE 0.9% FLUSH 5 ML FLUSH IVF PRN (10:30)
[2016-06-15 10:40] VITALS: BP_SYST 136; BP_SYST 89; BP_DIAS 51; BP_DIAS 88; PULSE 98; RESP 22; O2SAT 93
[2016-06-15 10:57] LABS: AUTOMATED NEUTROPHIL # 10.5 TH/MM3 (1.8-7.7); BASOPHIL # 0.1 TH/MM3 (0-0.2); BASOPHIL % 0.5 % (0.0-2.0); EOSINOPHIL # 0.3 TH/MM3 (0-0.4); HEMATOCRIT 36.7 % (35.0-46.0); HEMO FLAGS DIFF FINAL; LYMPH % 13.7 % (9.0-44.0); LYMPHOCYTE # 1.8 TH/MM3 (1.0-4.8); MEAN CELL VOLUME 86.5 FL (80.0-100.0); MEAN CORPUSCULAR HEMOGLOBIN 28.6 PG (27.0-34.0); MEAN CORPUSCULAR HGB CONC 33.1 % (32.0-36.0); MONO % 5.1 % (0.0-8.0); NEUT % 78.7 % (16.0-70.0); PLATELET COUNT 382 TH/MM3 (150-450); RED BLOOD COUNT 4.24 MIL/MM3 (4.00-5.30); RED CELL DISTRIBUTION WIDTH 16.3 % (11.6-17.2); WHITE BLOOD COUNT 13.4 TH/MM3 (4.0-11.0)
[2016-06-15 11:11] LABS: PROTHROMBIN TIME - PATIENT 11.4 SEC (9.8-11.6)
[2016-06-15 11:16] LABS: BICARBONATE 22.5 MEQ/L (21.0-32.0); POTASSIUM 4.4 MEQ/L (3.5-5.1)
--- NOTE | 2016-06-15 11:20 | RADRPT ---
EXAM DATE/TIME: 06/15/2016 11:00 [facility] COMPARISON: CHEST SINGLE AP, May 01, 2016, 7:19. INDICATIONS : Patient has been short of breath since her last heart attack. MEDICAL HISTORY : None. SURGICAL HISTORY : Carotid stent. ENCOUNTER: Initial ACUITY: 2 weeks PAIN SCORE: 0/10 LOCATION: chest FINDINGS: A single view of the chest demonstrates the lungs to be symmetrically aerated without evidence of mas s, infiltrate or effusion. Borderline cardiomegaly. The cardiomediastinal contours are unremarkable. Osseous structures are intact. CONCLUSION: 1. No acute cardiopulmonary disease. Borderline cardiomegaly Sergio Horton MD on June 15, 2016 at 11:17 Board Certified Radiologist. This report was verified electronically.
[2016-06-22] MEDS ORDERED: GUAI100S7 PO (14:39)
[2016-06-22] MEDS ORDERED: PROM6.256 PO (14:39)
[2016-06-22] MEDS ORDERED: PRAS10TA PO (14:39)
[2016-06-22] MEDS ORDERED: FURO20TA PO (14:39)
[2016-06-22] MEDS ORDERED: METO50TA PO (14:39)
[2016-06-22] MEDS ORDERED: Aspirin Chew PO (14:39)
[2016-06-22] MEDS ORDERED: MECL-62 PO (14:39)
[2016-06-22] MEDS ORDERED: ALPR.5 PO (14:39)
[2016-06-22] MEDS ORDERED: REST15CA PO (14:39)
[2016-06-22] MEDS ORDERED: LIPI80TA PO (14:39)
[2016-06-22] MEDS ORDERED: SPIR25TA PO (14:57)
[2016-06-29] MEDS ORDERED: FURO20TA PO (14:22)
[2016-06-29] MEDS ORDERED: VENTAER INH (14:42)
[2016-07-07] MEDS ORDERED: FLUTI44I INH (10:35)
[2016-07-29] MEDS ORDERED: ALPR.5 PO (16:16)
[2016-07-29] MEDS ORDERED: REST15CA PO (16:16)
[2016-07-29] MEDS ORDERED: PROM6.256 PO (16:16)
[2016-07-29] MEDS ORDERED: SERT25TA83 PO (16:41)
[2016-08-23] MEDS ORDERED: ALPR.5 PO (09:01)
[2016-08-27] MEDS ORDERED: FURO40TA PO (17:18)
[2016-09-27] MEDS ORDERED: TENI5INJ IM (09:40)
[2016-09-27] MEDS ORDERED: PNEU13P IM ×2 (09:40→09:51)
[2016-09-27] MEDS ORDERED: TETA1INJ5 IM (09:56)
== END 2016-06-15 12:52 | disposition home or self-care (01) ==
LOC: NEPE 09:58
DX: R06.02 Shortness of breath (principal); I25.2 Old myocardial infarction; I10 Essential (primary) hypertension; F17.210 Nicotine dependence, cigarettes, uncomplicated
CPT/HCPCS: 71010; 80048; 82550; 83735; 83880; 84484; 85025; 85610; 85730